=== PATIENT | male | born 1965 | race Caucasian/White ===

== ENCOUNTER 2023-09-24 10:30 | Emergency (ER) | payer MEDICARE, SELFPAY ==
--- NOTE | ~2023-09-24 | US_ITS ---
EXAMINATION: NONINVASIVE ASSESSMENT OF THE ARTERIES OF BOTH THE LEFT LOWER EXTREMITY Kunal Gong MD CLINICAL INFORMATION: Ischemic great toe TECHNIQUE: Left lower extremity duplex ultrasound was performed with velocity measurements and waveform analysis in the common femoral arteries, profunda femoris arteries, proximal mid and distal superficial femoral arteries, popliteal arteries and tibial vessels. This study was performed only at rest. COMPARISON: None FINDINGS: Velocities in cm/sec and phasicity as well as the presence of plaque are reported below. LEFT LEG: Plaque is present but there is normal triphasic flow and velocities seen throughout. Common Femoral: 155 Profunda Femoris: 96 Proximal SFA: 105 Mid SFA: 202 Distal SFA: 235 Popliteal: 190 Posterior tibial artery: 86 Peroneal: 25 Anterior tibial: 66 Dorsalis pedis: 102 US/US arterial duplex LE LT IMPRESSION: Plaque is present but there is no evidence of hemodynamically significant lower extremity arterial disease by waveform or duplex Doppler criteria at rest.
--- NOTE | ~2023-09-24 | XR_ITS ---
EXAMINATION: XR TOES, LEFT CLINICAL INFORMATION: Ultrasound in the great toe COMPARISON: None available. TECHNIQUE: 3 views of the left toes were obtained. FINDINGS: There are no fractures or dislocations. No joint effusion is identified. No bone, joint or soft tissue abnormality is demonstrated. There is soft tissue swelling surrounding great toe XR/XR toe LT min 2V IMPRESSION: Soft tissue swelling
--- NOTE | ~2023-09-24 | US_ITS ---
EXAMINATION: US VENOUS ULTRASOUND WITH DOPPLER LOWER EXTREMITY, LEFT CLINICAL INFORMATION: Left lower extremity swelling. Recent travel history. COMPARISON: None available. TECHNIQUE: Ultrasound of the deep veins is performed from the hip to the calf with compression sonography and color and pulse Doppler assessment. Spectral analysis with color-flow imaging is performed. FINDINGS: There is normal venous compression and respiratory variation and augmented flow. The visualized common femoral vein, superficial femoral vein, profunda femoral vein, popliteal vein, and the trifurcation region shows no evidence of deep venous thrombosis. Left inguinal lymph node measures 3.6 x 1.4 x 2.4 cm. There is subcutaneous edema of the calf. If the patient's symptoms persist, followup ultrasound in 5 days 7 days might be of value to exclude proximal propagation from a non-visualized calf vein. US/US venous duplex LE LT IMPRESSION: No DVT demonstrated in the left lower extremity. Enlarged left inguinal lymph node measuring 3.6 x 1.4 x 2.4 cm.
[2023-09-24 10:52] VITALS: BP 149/63; PULSE 78; RESP 19; TEMP 36.6; O2SAT 98; BMI 29.3
--- NOTE | 2023-09-24 10:58 | ED.WOUNDLAC ---
HPI - Wound/Laceration General Chief Complaint: Wound/Laceration Stated Complaint: Ulcer R foot Time Seen by Provider: 09/24/23 12:02 Source: patient Mode of arrival: ambulatory History of Present Illness HPI narrative: 57-year-old male with history of diabetes, hypertension, is visiting from [place] and is brought in for noticing a wound to the plantar side of the left great toe for 3 days an additional swelling to the corresponding foot and leg. Patient states that the white aspect occurred previously when he was working on a boat and had wet socks. Related Data Previous Rx's ?Medication ?Instructions ?Recorded amoxicillin 875 mg-potassium 1 tab PO BID 10 days #20 tabs 09/24/23 clavulanate 125 mg tablet Allergies Allergy/AdvReac Type Severity Reaction Status Date / Time No Known Allergies Allergy Verified 09/24/23 10:57 Review of Systems Review of Systems: Pertinent positives and negatives as stated in HPI PMFSH Past Medical History Source: nursing notes reviewed Social History Social History Smoked in Last 30 Days: No Use of substances other than those prescribed or required for medical reasons: No Advance Directives: No Advance Directives Information Provided: No Physical Exam Vital Signs: Vital Signs: Last Vital Signs Temp 98.1 F 09/24/23 11:54 Pulse 76 09/24/23 11:54 Resp 18 09/24/23 11:54 BP 144/66 H 09/24/23 11:54 Pulse Ox 98 09/24/23 11:54 O2 Del Method Room Air 09/24/23 11:54 BMI result Body Mass Index 29.3 VITAL SIGNS: Reviewed. GENERAL: Well developed, well nourished, in no acute distress. HEAD: Normocephalic/atraumatic EYES: PERRLA, EOMI LUNGS: Normal breath sounds. No adventitious sounds or accessory muscle use. SpO2<98> CARDIOVASCULAR: Regular rate and rhythm without noted murmurs, no JVD and 1+ pitting to anterior left lower leg ABDOMEN: Soft, non-tender, non-distended with bowel sounds. MUSCULOSKELETAL: No tenderness, deformities, or effusions noted on gross inspection. EXTREMITIES: No cyanosis, clubbing or edema. SKIN: Inspection of the skin reveals no rashes LLE: There is mild 1+ pitting edema to the anterior aspect, questionable posterior tibial palpated, foot does not appear white or cyanotic, there is a wound to the plantar aspect of the distal left great toe with surrounding pallor and purplish discoloration to the proximal portion of the phalanges, otherwise no obvious ischemic or infectious suspicions NEUROLOGIC: Alert and oriented x 4. Strength and sensation to light touch were grossly intact x 4. Course Course Course Narrative: This is a Rapid Medical Examination (RME) in triage, full HPI, ROS, assessment and plan per primary provider in the Main ED. 57 yo [place] speaking male with history of DM on insulin who lives in [place] and just landed her today, presents w/ family for evaluation of 3 days of left great toe swelling, redness after possible injury; he had a hole in his sandal. Left lower leg also swollen and red. Glucose 370 today. No fevers, no drainage from the toe. VS stable in triage. Plan: XR toe, U/S LE to r/o DVT, lab workup. Medical Decision Making Medical Decision Making [facility] Narrative: 57-year-old male with history and clinical presentation, DDX: Suspect ischemic left great toe that is chronic in nature with development of plantar surface wound, I do not suspect acute infection at this time. Quick review of venous Doppler of left lower extremity negative for DVT, placed an order for arterial duplex of left lower extremity. I reviewed all investigations and hematologic indices negative for leukocytosis/left shift, there is no thrombocytopenia there is a normocytic anemia likely of chronic disease as there is no history and clinical presentation to suggest occult bleeding. Chemistry indices negative for CASE or electrolyte derangements, there is a mild lactic acidosis with corresponding hyperglycemia, suspect that lactic acid elevation is secondary to left great toe infection. Inflammatory markers are both elevated ESR/CRP but x-ray only demonstrating soft tissue swelling as mentioned above venous duplex negative for DVT in arterial duplex demonstrates triphasic flow to the distal extremity. All results and findings were discussed with the patient at bedside via electron beam operator and you will be started on a course of antibiotics with strict instructions to keep an eye on the left great toe for additional color changes specifically black. Differential Diagnosis Differential Diagnoses: The differential diagnosis associated with the presentation includes Please see the discussion above Admission/Observation Consideration of admission/observation: Escalation of care including admission/observation considered Please see the discussion above Lab Data MDM Lab Attestation statement: I reviewed the patient's lab results. Please see the discussion above 09/24/23 11:40 09/24/23 11:40 Labs: Lab Results 09/24/23 09/24/23 Range/Units 11:40 14:05 WBC 10.8 (4.8-10.8) X10*3/uL RBC 4.50 L (4.60-5.80) X10*6/uL Hgb 12.7 L (14.0-18.0) g/dl Hct 38.0 L (42.0-52.0) % MCV 84.4 (80.0-98.0) fL MCH 28.2 (27.0-33.0) pg MCHC 33.4 (31.0-36.0) g/dl RDW 12.3 (11.0-16.0) % Plt Count 281 (160-400) X10*3/uL MPV 11.2 (9.4-12.4) fL Immature Gran % (Auto) 0.4 (0.0-0.4) % Neut % (Auto) 67.3 (45-73) % Lymph % (Auto) 24.0 (20-40) % Pitt % (Auto) 7.3 (2-11) % Eos % (Auto) 0.6 (0-4) % Baso % (Auto) 0.4 (0-2) % Lymph # (Auto) 2.6 (1.2-4.9) X10*3/uL Pitt # (Auto) 0.8 (0.1-1.2) X10*3/uL Eos # (Auto) 0.1 (0.0-0.4) X10*3/uL Baso # (Auto) 0.0 (0.0-0.2) X10*3/uL Abs Immat Gran (auto) 0.04 H (0.00-0.03) X10*3/uL Absolute Neuts (auto) 7.3 (2.0-8.3) x10*3/uL Absolute Nucleated RBC 0.000 (0.0-0.012) X10*3/uL Nucleated RBC % (auto) 0.0 (0.0-0.2) /100WBC ESR 49 H (0-15) MM/HR Sodium 138 (135-145) mmol/L Potassium 4.6 (3.3-5.1) mmol/L Chloride 100 (96-108) mmol/L Carbon Dioxide 30 H (22-29) mmol/L Anion Gap 13 (12-20) BUN 26 H (9-16) mg/dL Creatinine 1.29 (0.5-1.4) mg/dL Estim Creat Clear Calc 66.5 Estimated GFR 58 Random Glucose 331 H (60-115) mg/dL Lactic Acid 2.2 H* (0.5-2.0) mmol/L Lactic Acid F/U @ 2Hr 1.1 (0.5-2.0) mmol/L Calcium 10.2 (8.4-10.2) mg/dL Magnesium 1.7 (1.6-2.6) mg/dL Total Bilirubin 0.5 (0.0-1.0) mg/dL Direct Bilirubin 0.3 (0.0-0.5) mg/dL AST 18 (5-37) U/L ALT 19 (0-40) U/L Alkaline Phosphatase 120 H (39-117) U/L C-Reactive Protein 4.36 H (< or = 0.50) mg/dL Total Protein 8.5 H (6.5-8.0) g/dL Albumin 4.1 (3.5-5.0) g/dL Radiology Impression Discussion of test interpretation with radiology: I have reviewed the radiologist's reading. Radiologist Impression: Please see the discussion above Chronic Conditions Patient?s care impacted by: Diabetes and Hypertension Critical Care Time Critical Care Time Critical Care Time: Yes Total Critical Care Time: 45 Attestation: I personally attest to this time spent taking care of the patient. Discharge Plan Discharge Clinical Impression: Hyperglycemia due to diabetes mellitus, Diabetic peripheral neuropathy, Non-healing open wound of toe Instructions: Diabetic Peripheral Neuropathy (ED), Diabetic Hyperglycemia (ED), Acute Wounds (ED) Additional Instructions: 1. Continue all home medications. 2. Complete the entire course of antibiotics as prescribed. 3. Follow-up with your primary care doctor at your earliest convenience. Return to the ER for any worsening appearance of the toe or any development of fever, chills. Prescriptions: New amoxicillin-pot clavulanate 875-125 mg tablet 1 tab PO BID 10 Days Qty: 20 0RF Print Language: Kyrgyz
[2023-09-24 11:49] LABS: MANUAL DIFF FLAG NO
[2023-09-24 11:54] VITALS: BP 144/66; PULSE 76; RESP 18; TEMP 36.7; O2SAT 98
[2023-09-24 12:03] LABS: Basophils Percent Auto 0.4 % (0-2); Eosinophils Absolute Auto 0.1 X10*3/uL (0.0-0.4); Eosinophils Percent Auto 0.6 % (0-4); Hemoglobin 12.7 g/dl (14.0-18.0); Imm Gran Abs Auto 0.04 X10*3/uL (0.00-0.03); Imm Gran Pct Auto 0.4 % (0.0-0.4); Lactic Acid 2.2 mmol/L (0.5-2.0); Lymphocytes Absolute Auto 2.6 X10*3/uL (1.2-4.9); Mean Corpuscular HGB Conc 33.4 g/dl (31.0-36.0); Mean Corpuscular Hemoglobin 28.2 pg (27.0-33.0); Mean Corpuscular Volume 84.4 fL (80.0-98.0); Mean Platelet Volume 11.2 fL (9.4-12.4); Monocytes Absolute Auto 0.8 X10*3/uL (0.1-1.2); Monocytes Percent Auto 7.3 % (2-11); Neutrophils Absolute Auto 7.3 x10*3/uL (2.0-8.3); Neutrophils Percent Auto 67.3 % (45-73); Platelet Count 281 X10*3/uL (160-400); Red Cell Distribution Width 12.3 % (11.0-16.0); White Blood Count 10.8 X10*3/uL (4.8-10.8)
[2023-09-24 12:07] LABS: Alanine Aminotransferase 19 U/L (0-40); Albumin Level 4.1 g/dL (3.5-5.0); Alkaline Phosphatase 120 U/L (39-117); Anion Gap 13 (12-20); Aspartate Amino Transferase 18 U/L (5-37); Bilirubin Direct 0.3 mg/dL (0.0-0.5); Bilirubin Total 0.5 mg/dL (0.0-1.0); Blood Urea Nitrogen 26 mg/dL (9-16); C Reactive Protein 4.36 mg/dL (< or = 0.50); Calcium 10.2 mg/dL (8.4-10.2); Carbon Dioxide 30 mmol/L (22-29); Chloride 100 mmol/L (96-108); Creatinine Clr Calc Pharmacy 66.5; Estimated Glomerular Filt Rate 58; Glucose Random 331 mg/dL (60-115); Magnesium 1.7 mg/dL (1.6-2.6); Potassium 4.6 mmol/L (3.3-5.1); Sodium 138 mmol/L (135-145); Total Protein 8.5 g/dL (6.5-8.0)
--- NOTE | 2023-09-24 12:10 | PC.NURSE ---
pt is alert and oriented, skin appropriate for ethnicity, respirations even and unlabored, pt's great left toe has a visible wound on the top of the toe, no draining visible/no order, the top of the toe has some while color and the base of the toe is purple in color, pt reports no pain, weak pedal pulses on palpation, left leg slightly swollen- pt reports pain in the left calf with palpations, both of the legs are glossy in appearance. pt states about three days ago he was working on a boat and the shoes got wet then he noticed skin that was hanging on the left great toe and he picked it off. vs stable
[2023-09-24 12:50] LABS: Erythrocyte Sedimentation Rate 49 MM/HR (0-15)
[2023-09-24 13:47] LABS: Reflex Lactate? Lactic Acid Added
[2023-09-24 14:25] LABS: ~Lactic Acid-LAB USE ONLY 1.1 mmol/L (0.5-2.0)
[2023-09-24 14:33] VITALS: BP 166/72; PULSE 81; RESP 14; TEMP 36.3; O2SAT 97
--- NOTE | 2023-09-24 14:50 | PC.NURSE ---
dr givens at bedside
[2023-09-24] MEDS: Amoxicillin/Potassium Clav 875 MG TABLET PO (14:52)
[2023-09-24 14:57] VITALS: BP 166/72; PULSE 81; RESP 14; TEMP 36.3; O2SAT 97
== END 2023-09-24 14:59 | disposition home or self-care (01) ==
PROVIDERS: Physician Assistant; Emergency Provider Student in an Organized Health Care Education/Training Program
DX: E11.65 Type 2 diabetes mellitus with hyperglycemia (principal); M79.674 Pain in right toe(s); E11.42 Type 2 diabetes mellitus with diabetic polyneuropathy; I10 Essential (primary) hypertension; R60.0 Localized edema; Z79.899 Other long term (current) drug therapy
CPT/HCPCS: 36415; 73660; 80048; 80076; 83605; 83735; 85025; 85652; 86140; 87040; 93926; 93971; 99284